=== PATIENT | male | born 1985 | race Caucasian/White ===

== ENCOUNTER 2016-12-19 13:47 | Emergency (ER) | payer SELFPAY ==
[~2016-12-19] VITALS: Ht 177.8 cm; Wt 80.0 kg
[2016-12-19] MEDS ORDERED: VICOPROFEN PO ×2 (14:07→15:37)
[2016-12-19] MEDS ORDERED: FLEXERIL PO (15:37)
[2016-12-19 15:44] VITALS: BP 119/87
== END 2016-12-19 15:51 | disposition home or self-care (01) | DRG 563 ==
LOC: ED 13:47
DX: S39.012A Strain of muscle, fascia and tendon of lower back, initial encounter (principal); M43.20 Fusion of spine, site unspecified; X50.0XXA Overexertion from strenuous movement or load, initial encounter; Y93.H9 Activity, other involving exterior property and land maintenance, building and construction; Y92.007 Garden or yard of unspecified non-institutional (private) residence as the place of occurrence of the external cause

== ENCOUNTER 2017-01-01 18:03 | Emergency (ER) | payer SELFPAY ==
[~2017-01-01] VITALS: Ht 177.8 cm; Wt 76.0 kg
[~2017-01-01 18:03] MED LIST: FLEXERIL PO; VICOPROFEN PO
[2017-01-01] MEDS ORDERED: OMEPRAZOLE10 MG PO (18:39)
[2017-01-01] MEDS ORDERED: RANITIDINE150 M1 PO (18:40)
[2017-01-01 19:28] LABS: HEMATOCRIT 45.6 % (39.0-50.0); HEMOGLOBIN 15.5 g/dl (14.0-18.0); IMMATURE GRANULOCYTES 0.4 % (0.0-1.0); MEAN CELL VOLUME 91.6 fL CALC (80.0-100.0); MEAN CORPUSCULAR HGB 31.1 pG CALC (26.0-32.0); NEUT# 7.74 thou/uL (1.82-7.42); RED BLOOD COUNT 4.98 mill/uL (4.70-6.10); RED CELL DISTRI WIDTH 13.1 % (11.5-15.5)
[2017-01-01 19:29] LABS: URINE BILIRUBIN - DIPSTICK NEGATIVE (NEGATIVE); URINE BLOOD DIPSTICK LARGE (NEGATIVE); URINE COLOR YELLOW; URINE GLUCOSE - DIPSTICK NEGATIVE (NEGATIVE); URINE KETONE NEGATIVE (NEGATIVE); URINE LEUK ESTERASE NEGATIVE (NEGATIVE); URINE NITRITE - DIPSTICK NEGATIVE (Negative); URINE PH 6.5 (4.5-8.0); URINE PROTEIN - DIPSTICK NEGATIVE (NEG-TRACE); URINE SPECIFIC GRAVITY 1.025; URINE UROBILINOGEN - DIPSTICK 0.2 E.U./dL (0.2)
[2017-01-01 19:35] LABS: URINE CLARITY CLEAR
[2017-01-01 19:36] LABS: URINE WBC 0-2 WBC/hpf (0-5)
[2017-01-01 19:41] LABS: ALBUMIN 5.1 g/dL (3.2-5.0); ALKALINE PHOSPHATASE 66 u/l (38-126); AMYLASE 48 u/l (30-110); ANION GAP 17 (6-22 (CALC)); BILIRUBIN, TOTAL 0.7 mg/dL (0.0-1.4); BUN 15 mg/dL (9-20); BUN/CREATININE RATIO 19 (12-20 (CALC)); CALCIUM 9.9 mg/dL (8.4-10.2); CARBON DIOXIDE 25 mmol/l (22-30); CHLORIDE 109 mmol/l (95-108); CREATININE 0.8 mg/dL (0.7-1.3); GFR > 60 ML/MIN (>=60 (CALC)); GFR FOR AFR.AMER. > 60 ML/MIN (>=60 (CALC)); GLUCOSE 90 mg/dL (75-110); LIPASE 60 u/l (23-300); SGOT/AST 25 u/l (17-59); SGPT/ALT 27 u/l (21-72); SODIUM 146 mmol/l (137-146); TOTAL PROTEIN 8.2 g/dL (6.3-8.2)
[2017-01-01 19:53] LABS: MYOGLOBIN 29 ng/mL (0 - 121)
[2017-01-01 21:18] VITALS: BP 120/65
== END 2017-01-01 21:25 | disposition home or self-care (01) | DRG 694 ==
LOC: ED 18:03
PROVIDERS: Emergency Medicine
DX: N20.0 Calculus of kidney (principal); K21.9 Gastro-esophageal reflux disease without esophagitis
CPT/HCPCS: S0164

== ENCOUNTER 2017-02-09 12:06 | Emergency (ER) | payer SELFPAY ==
[~2017-02-09] VITALS: Ht 177.8 cm; Wt 69.4 kg
[~2017-02-09 12:06] MED LIST changes: +OMEPRAZOLE10 MG PO; +RANITIDINE150 M1 PO
[2017-02-09] MEDS ORDERED: ADVIL200 MG PO (12:27)
[2017-02-09] MEDS ORDERED: ULTRAM50 M1 PO (13:39)
[2017-02-09 13:50] VITALS: BP 119/64
[2017-02-09] MEDS ORDERED: NAPROSYN500 MG PO (13:56)
== END 2017-02-09 13:50 | disposition home or self-care (01) | DRG 563 ==
LOC: ED 12:06
DX: S53.402A Unspecified sprain of left elbow, initial encounter (principal); M25.522 Pain in left elbow; W01.0XXA Fall on same level from slipping, tripping and stumbling without subsequent striking against object, initial encounter; Y92.002 Bathroom of unspecified non-institutional (private) residence as the place of occurrence of the external cause; R42 Dizziness and giddiness